=== PATIENT | female | born 1985 | race Caucasian/White ===

== ENCOUNTER 2017-11-06 07:55 | Emergency (ER) | payer SELFPAY ==
[2017-11-06] MEDS ORDERED: AMOXICILLIN 500 MG CAPSULE (FP) PO ONE (08:06)
[2017-11-06 08:09] VITALS: BP 157/88; PULSE 94; TEMP 99.4; BMI 25.8
--- NOTE | 2017-11-06 08:12 | PDOC ---
History of Present Illness - General Stated Complaint: SORE THROAT History Source: Patient - History of Present Illness Timing/Duration: reports: yesterday Associated Symptoms: reports: sore throat. denies: cough, earache, facial pain , fever/chills, headache, nasal congestion, nasal drainage Past History - Past Medical History Home Medications: Ambulatory Orders NK [No Known Home Medication] 11/06/17 Review of Systems - Review of Systems Constitutional: No: Chills, Fever HEENTM: Yes: Throat Pain Respiratory: No: Cough *Physical Exam - Physical Exam General Appearance: Yes: Appropriately Dressed. No: Apparent Distress HEENT: positive: Normal Voice, TMs Normal, Tonsillar Exudate Neck: positive: Supple. negative: Lymphadenopathy (R), Lymphadenopathy (L) Respiratory/Chest: negative: Respiratory Distress Integumentary: positive: Dry, Warm Neurologic: positive: Fully Oriented, Alert, Normal Mood/Affect Medical Decision Making - Medical Decision Making 11/06/17 08:10 32-year-old female, history of strep pharyngitis, here with sore throat since yesterday. Denies cough, ear pain, fever or chills. No known sick contacts, but works as a nurse facilities maintenance manager at [employer]. Patient well-appearing and stable with exudative lesions to bilateral tonsils on exam. No significant swelling or uvular deviation. Will tx for presumed strep. 1st dose of amoxicillin given. DC with prescription for same *DC/Admit/Observation/Transfer Diagnosis at time of Disposition: Pharyngitis Qualifiers: Pharyngitis/tonsillitis etiology: unspecified etiology Qualified Code(s): J02.9 - Acute pharyngitis, unspecified - Discharge Dispostion Disposition: HOME Condition at time of disposition: Good - Referrals - Patient Instructions Printed Discharge Instructions: Strep Throat Additional Instructions: You were treated for presumed strep. Take antibiotics as directed and take Motrin every 6 hours as needed for pain. If symptoms worsen, return to ER - Post Discharge Activity
== END 2017-11-06 08:41 | disposition home or self-care (01) ==
LOC: JER 07:55
DX: J02.9 Acute pharyngitis, unspecified (principal)
CPT/HCPCS: 99281-25

== ENCOUNTER 2018-08-09 08:20 | Emergency (ER) | payer BC ==
[2018-08-09 08:31] VITALS: BP 158/84; PULSE 112; TEMP 98.7; BMI 25.8
--- NOTE | 2018-08-09 08:46 | PDOC ---
History of Present Illness - General Chief Complaint: Nausea Stated Complaint: NAUSEA/HEADACHE Time Seen by Provider: 08/09/18 08:46 - History of Present Illness Initial Comments: 32 year old previously healthy female presenting with nausea, sore throat, myalgias, and cough for the past 4 days. States that she also measured a fever as high as 103.4 a few days ago and has had improvement of her symptoms with Tylenol. She came in to get a flu swab today to see if she has the flu. Denies photophobia, neck stiffness, recent travel or other symptoms. She did get her flu shot this year. She has been around many patients who have been coughing as well. Denies any vomiting, diarrhea, chest pain, or SOB. 08/09/18 09:38 Past History - Past Medical History Allergies/Adverse Reactions: Allergies Allergy/AdvReac Type Severity Reaction Status Date / Time No Known Allergies Allergy Verified 08/09/18 08:26 Home Medications: Ambulatory Orders Amoxicillin - [Amoxicillin 500mg Capsule -] 500 mg PO BID #13 capsule 11/06/17 COPD: No - Suicide/Smoking/Psychosocial Hx Smoking History: Never smoked Have you smoked in the past 12 months: No Hx Alcohol Use: No Drug/Substance Use Hx: No Substance Use Type: None Review of Systems - Review of Systems Constitutional: Yes: Fever. No: Chills, Diaphoresis, Loss of Appetite HEENTM: No: Eye Pain, Blurred Vision, Tearing Respiratory: Yes: Cough. No: Shortness of Breath, SOB with Exertion Cardiac (ROS): No: Chest Pain, Irregular Heart Rate ABD/GI: Yes: Nausea. No: Diarrhea, Vomiting : No: Dysuria, Discharge, Frequency Musculoskeletal: Yes: Muscle Pain. No: Back Pain, Joint Pain Integumentary: No: Bruising, Change in Color, Change in Hair/Nails Neurological: No: Headache, Numbness, Paresthesia Psychiatric: No: Anxiety, Depression Hematologic/Lymphatic: No: Anemia, Blood Clots, Easy Bleeding *Physical Exam - Vital Signs Last Vital Signs Temp Pulse Resp BP Pulse Ox 98.7 F 112 H 18 158/84 99 08/09/18 08:29 08/09/18 08:29 08/09/18 08:29 08/09/18 08:29 08/09/18 08:29 - Physical Exam General Appearance: Yes: Nourished, Appropriately Dressed. No: Apparent Distress HEENT: positive: EOMI, YOAV, Normal ENT Inspection, Normal Voice Neck: positive: Trachea midline, Normal Thyroid, Supple. negative: Tender, Rigid Respiratory/Chest: positive: Lungs Clear, Normal Breath Sounds. negative: Chest Tender, Respiratory Distress, Accessory Muscle Use Cardiovascular: positive: Regular Rhythm, Regular Rate Gastrointestinal/Abdominal: positive: Normal Bowel Sounds, Flat, Soft. negative : Tender Lymphatic: negative: Adenopathy, Tenderness Musculoskeletal: positive: Normal Inspection. negative: Decreased Range of Motion Extremity: positive: Normal Capillary Refill, Normal Inspection, Normal Range of Motion. 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 Flu and HCG negative in our ED. No meningitic signs. No VS abnormalities and patient's symptoms improved with Motrin 600mg. Will DC with return precautions and follow up instructions. 08/09/18 09:43 *DC/Admit/Observation/Transfer Diagnosis at time of Disposition: Upper respiratory infection Qualifiers: URI type: unspecified viral URI Qualified Code(s): J06.9 - Acute upper respiratory infection, unspecified - Discharge Dispostion Disposition: HOME Condition at time of disposition: Improved Decision to Admit order: No - Referrals - Patient Instructions Printed Discharge Instructions: DI for Viral Upper Respiratory Infection -- Adult Additional Instructions: Please stay hydrated and use Tylenol or Motrin for your symptoms. Please return to the ED if you have new or worsening symptoms.Please follow up with your PCP within a week. - Post Discharge Activity
[2018-08-09] MEDS ORDERED: IBUPROFEN 600 MG TABLET (FP) PO ONE ×2 (09:27→09:32)
--- NOTE | 2018-08-09 09:40 | PDOC ---
Attending Attestation - Resident Resident Name: Odette Modi - ED Attending Attestation I have performed the following: I have examined & evaluated the patient, The case was reviewed & discussed with the resident, I agree w/resident's findings & plan, Exceptions are as noted - HPI HPI: 08/09/18 09:38 32 F with no PMH presents to ED with 4 days of malaise, body aches, fevers, and nausea. Pt denies any vomiting but states she has felt nauseous. Denies any abdominal pain. No cough/CP/SOB. Pt states that her child was sick this past week. Pt denies dysuria. Denies flank pain. Denies VALENTIN/neck pain. - Physicial Exam PE: 08/09/18 09:39 "GENERAL: Awake, alert, and fully oriented, in no acute distress. HEAD: No signs of trauma EYES: PERRLA, EOMI, sclera anicteric, conjunctiva clear ENT: Auricles normal inspection, hearing grossly normal, nares patent, oropharynx clear without exudates. Moist mucosa NECK: Nontender, no stepoffs, Normal ROM, supple, no lymphadenopathy, JVD, or masses LUNGS: Breath sounds equal, clear to auscultation bilaterally. No wheezes, and no crackles HEART: Regular rate and rhythm, normal S1 and S2, no murmurs, rubs or gallops ABDOMEN: Soft, nontender, normoactive bowel sounds. No guarding, no rebound. No masses EXTREMITIES: Normal range of motion, no edema. No clubbing or cyanosis. No cords, erythema, or tenderness NEUROLOGICAL: Cranial nerves II through XII intact. 5/5 strength and sensation in all extremities, Normal speech, normal gait, normal cerebellar function SKIN: Warm, Dry, normal turgor, no rashes or lesions noted. - Medical Decision Making 08/09/18 09:39 32 F with likely viral syndrome. Will check for flu. - UPT - Flu swab - Motrin 08/09/18 10:19 UPT and flu swab negative Pt received motrin Repeat HR 78 Pt is well appearing, with normal vitals. Clinically stable for DC at this time. I discussed the physical exam findings, ancillary test results and final diagnoses with the patient. I answered all of the patient's questions. The patient was satisfied with the care received and felt comfortable with the discharge plan and treatment plan. The patient agrees to follow up with the primary care physician within 24-72 hours.
== END 2018-08-09 10:10 | disposition home or self-care (01) ==
LOC: JER 08:20
DX: J06.9 Acute upper respiratory infection, unspecified (principal); B97.89 Other viral agents as the cause of diseases classified elsewhere
CPT/HCPCS: 84703; 87804; 99282-25